=== PATIENT | female | born 1960 | race Caucasian/White ===

== ENCOUNTER 2022-04-15 11:25 | Outpatient (CLI) | payer BC, SELFPAY ==
--- NOTE | 2022-04-15 11:00 | DI.RAD_ITS ---
Exam(s) XR STANDING ALIGNMENT EXAM: XR STANDING ALIGNMENT CLINICAL HISTORY: eval painful R knee, malalignment. TECHNIQUE: 2D digital imaging was performed. Eight images were obtained. COMPARISON: CR XR KNEE 3 VIEW RIGHT from 06/23/2020 FINDINGS: BONES: The hips are well maintained. The patient has bilateral total knee replacements. The ankles are well maintained.There is no significant leg length discrepancy. SOFT TISSUE: Normal. IMPRESSION: Bilateral total knee replacements. DATA REPOSITORY: RADIATION DOSE DELIVERED:
--- NOTE | 2022-04-15 11:00 | DI.RAD_ITS ---
Exam(s) XR KNEE RT 2V AP,LAT EXAM: XR KNEE RT 2V AP,LAT CLINICAL HISTORY: eval R TKA pain. TECHNIQUE: 2D digital imaging was performed of the right knee. Two views obtained. AP and lateral views were obtained. COMPARISON: CR,DX XR KNEE 3V BILAT-M2 from 09/17/2018 CR XR KNEE 4 VIEW RIGHT from 08/06/2020 FINDINGS: BONES: No acute fracture is present. No bony destructive lesion is seen. There is an enthesophyte at the superior patella. JOINTS: The patient has a right total knee replacement. There is now of varus deformity of the knee. There is a question of malalignment of the femoral component of the prosthesis. The distal femur a nd the femoral component of the prosthesis have a change in alignment compared to the examination fro 2019. There is a small joint effusion. SOFT TISSUE: Atherosclerosis is present. IMPRESSION: There appears to be a change in the alignment of the femoral prosthesis relative to the distal femur. There is now mild varus deformity of the right knee. This may represent loosening of the prosthesi s. DATA REPOSITORY: RADIATION DOSE DELIVERED:
[2022-04-15 13:03] LABS: Clarity Cloudy; Nucleated Cells 787 uL (0)
[2022-04-15 13:11] LABS: Mononuclear Cells 76 %; Polynuclear Cells 24 %
== END 2022-04-15 11:26 | disposition home or self-care (01) ==
LOC: DIORS 11:25
PROVIDERS: PCP Internal Medicine; Referring Provider Internal Medicine; Visit Provider Student in an Organized Health Care Education/Training Program
DX: T84.84XA Pain due to internal orthopedic prosthetic devices, implants and grafts, initial encounter (principal); Z96.653 Presence of artificial knee joint, bilateral; M21.161 Varus deformity, not elsewhere classified, right knee
CPT/HCPCS: 73560; 77073; 87070; 87205; 89051

== ENCOUNTER 2022-04-15 16:24 | Outpatient (REF) | payer BC, SELFPAY ==
--- OUTSIDE RECORDS SUMMARY | 2022-04-15 16:26 | XMS_ITS | Encounter Summary ---
:1960 Author Organization [facility] Address [address] [place] [address] Care Team Providers Name Role Phone Unavailable Primary Care Provider Unavailable Encounter Details Date Type Department Care Team Description 03/28/2012 Results Only [facility] Danitza Mcdonough, Laboratory Services - [facility] [address] [facility] [address] [place] [address] [place], [place] [id number] [phone] Social History Tobacco Use Types Packs/Day Years Used Date Never Assessed Sex Assigned at Date Recorded Not on file documented as of this encounter Plan of Treatment Not on filedocumented as of this encounter Procedures Procedure Name Priority Date/Time Associated Diagnosis Comme nts PAP TEST- RESULT Routine 03/28/2012 0:00 EDT Resu lts for this ONLY procedure are i n the results section. documented in this encounter Results PAP TEST- RESULT ONLY (03/28/2012 0:00 EDT) Pathology Report: CYTOPATHOLOGY REPORT [facility] Reports generated via electronic interface contain rut ginal data; however they are lacking the format of the original re port. Caution should be taken when reading/interpreting unfo rmatted reports. Name: ? MELBA VASQUEZ ? Accession #: ? [id number] : ? 1960 (Age: 52) ??F ?Collect Date: ? 03/18 Location: ? [facility] ? Receive Date : ? 03/29/2012 Provider: ?DANITZA MCDONOUGH PULLER OUT Copy to: ? Specimen/Source: ? Pap Test, Source Not Provided, ThinPrep Imaging System with manual evaluation Last Menstrual Period: ? 08/28 ? SPECIMEN ADEQUACY ? Satisfactory for Evaluation - transformation zone component present GENERAL CATEGORIZATION ? Negative for Intraepithelial Lesion or Malignan cy ? Document reviewed and electronically signed by: ? MANAS Vaz(ASCP) ? Report Date: ??04/03/2012 07:14 End of Report Specimen Performing Organization Address City/State/ZIP Code Phon e Number [facility] [address] [place] [address] SERVICES [facility] [address] [place] [address] documented in this encounter Visit Diagnoses Not on filedocumented in this encounter
--- OUTSIDE RECORDS SUMMARY | 2022-04-15 16:26 | XMS_ITS | Encounter Summary ---
:1960 Author Organization [facility] [place] [address] Care Team Providers Name Role Phone Unavailable Primary Care Provider Unavailable Encounter Details Date Type Department Care Team Description 06/28/2019 Hospital Encounter Mobile [facility], Hypertens ion, Echocardiography Lina Yan MD unspecified type [address] [place] [id number] [phone] Social History Tobacco Use Types Packs/Day Years Used Date Never Assessed Sex Assigned at Date Recorded Not on file documented as of this encounter Plan of Treatment Not on filedocumented as of this encounter Procedures Procedure Name Priority Date/Time Associated Comments Diagnosis ECHOCARDIOGRAM COMPLETE Routine 06/28/2019 10:11 Hypertension, Results for this AM EDT unspecified type procedure a re in the results section. documented in this encounter Results ECHOCARDIOGRAM COMPLETE (06/28/2019 10:11 AM EDT) P athologist Signature EF 65 [facility] Specimen (Source) Anatomical Location Collection Method / Collectio n Time Received Time / Laterality Volume 06/28/2019 Narrative [facility] - 06/28/2019 10:46 AM ED T Procedure: ?Transthoracic Echocardiogram Patient: ?PEDRO Ramirez. . ?? (Age): 1960(59y) Med Rec#: ? [id number] ?Sex: ?F ? Site Loc: ? [facility] ??H t / Wt: ??160(cm)/104.3(k Pt. Loc: ?Echo Lab ?BSA: ?2.05 Study Date: ?? 06/28/2019 ?Pt. Type: Outpatient Tape: ? Referring: Referring: Lina Flanagan Referring: [facility] Echo Lab Referring: [facility] Reading: Rafi Miranda ??([id number]) Performing: UNKNOWN Label Printer: NOEMÍ Diagnosis: *Essential (primary) hypertension (I10) BP: ? 156/82 SUMMARY: 1. The left ventricular chamber size is normal. Left ventricular wall thickness is normal. There is normal arnaud bal left ventricular systolic function. Ejection fraction is estimated to be 65%. There are no left ventricular segmental wall motion abnorm alities. 2. Right ventricular chamber size and sy stolic function are within normal limits. Pulmonary artery hyperten racheal could not be assessed due to inadequate tricuspid regurgitation je t. 3. The left atrium is normal in size. Th e right atrium is normal in size. 4. There is no hemodynamically significa nt valve disease. 5. See remainder of report for additiona l findings. Findings ? : Study Quality: ? Adequate Left Ventricle: ? The left ventricul ar chamber size is normal. ?Left ventricular wall thickness is normal. ?There is no evidence of LVOT obstr uction. ?No ventricular septal defect is vi sualized. ?There is normal global left ventri cular systolic function. ??Ejection fraction is estimated to be 65%. ?There are no left ventricular segm ental wall motion abnormalities. ?The left ventricular diastolic bg ling pattern is consistent with impaired LV relaxation. ?Doppler assessment is consistent w ith normal left sided filling pressure. Left Atrium: ? The left atrium is no rmal in size. Right Ventricle: ? Right ventricular chamber size, wall thickness, and systolic function are within normal limi ts. ?Pulmonary artery hypertension coul d not be assessed due to inadequate tricuspid regurgitation jet. Right Atrium: ? The right atrium is normal in size. Aortic Valve: ? The aortic valve str ucture is normal. ?The aortic valve leaflets are mild ly thickened. ?Systolic excursion of the aortic v alve is normal. ?There is no evidence of aortic lars ve stenosis. ?There is no evidence of aortic reg urgitation. Mitral Valve: ? The mitral valve ghanshyam flets are mildly thickened. ?There is trace mitral regurgitatio n present. Tricuspid Valve: ? The tricuspid lars ve leaflets are morphologically normal. ?There is trace tricuspid regurgita tion present. Pulmonic Valve: ? The pulmonic valve appears normal in structure and function. Pericardium: ? The pericardium appea rs normal and there is no evidence of a pericardial effusion. Aorta: ? The aortic root is normal i n size. ?The ascending aorta is normal in s ize. Pulmonary Artery: ? The main pulmona ry artery appears normal. Venous: ? The inferior vena cava david ears normal in size. ?There is a greater than 50% respir atory change in the inferior vena cava dimension. Misc: ? There is no hemodynamically significant valve disease. ?See remainder of report for additi onal findings. ?Two-dimensional echo, spectral Dop pler and color Doppler performed. Chambers 2D ?Value ?Units (Range) ? IVSd (2D) ? 1.1 ?cm ? LVPWd (2D) ?1.1 ?cm ? IVS:LVPW ratio (2D) 1 ?ratio ? RWT (2D) ?0.5 ?ratio ? RWT PW (2D) ? 0.5 ?ratio ? LVIDd (2D) ?4.4 ?cm ? LVIDs (2D) ?2.9 ?cm ? LV FS (2D) ?34 ? % ? EF Teichholz (2D) ?? 63 ? % ? Ao root diameter (2D3.3 ?cm (2.1 - 3.6) ? Ascending Ao ?3 ?cm (2 - 3.5) ? Volumes/Mass ?Value ?Units (Range) ? LA Area 4 CH ?15 ? cm2 (<21) ? RA AREA 4CH ? 16 ? cm2 ? LV mass (2D) ?168.9 ?g ? Diastolic/Systolic Function ?Value ?Units (Range) ? MV E-wave Vmax ?0.7 ?m/sec ? MV deceleration upqy112 ?msec ? MV A-wave Vmax ?0.8 ?m/sec ? MV E:A ratio ?0.9 ?ratio ? LV septal e' Vmax ?? 0.1 ?m/sec ? LV lateral e' Vmax ??0.1 ?m/sec ? LV average e' Vmax ??0.1 ?m/sec ? LV E:e' septal ratio6.4 ?ratio ? LV E:e' lateral rati8.8 ?ratio ? LV average E:e' rati7 ?ratio ? Wall Motion: Segment Name ?Rest ? Base-Anteroseptal ?? Normal ? Base-Anterior ? Normal ? Base-Anterolateral ??Normal ? Base-Posterolateral Normal ? Base-Inferior ? Normal ? Base-Inferoseptal ?? Normal ? Mid-Anteroseptal ?Normal ? Mid-Anterior ?Normal ? Mid-Anterolateral ?? Normal ? Mid-Posterolateral ??Normal ? Mid-Inferior ?Normal ? Mid-Inferoseptal ?Normal ? Ipava-Septal ? Normal ? Ipava-Anterior ? Normal ? Ip[place]-Lateral ?Normal ? Ipava-Inferior ? Normal ? Ipava-Tip ?Normal ? This report has been electronically sign ed by: _ Rafi Miranda MD ? 06/28/2019 10:45 :56 Images reviewed and interpretation emilia redd [facility] Cardiac Ultrasound Laboratory Procedure Note Rafi Miranda MD - 06/28/2019Formattin g of this note might be different from the original. Procedure: Transthoracic Echocardiogram Patient: PEDRO Love (Age): 0 1960(59y) Med Rec#: [id number] Sex: F Site Loc: [facility] Ht / Wt: 160(cm)/104.3(k Pt. Loc: Echo Lab BSA: 2.05 Study Date: 06/28/2019 Pt. Type: Outpati ent Tape: Referring: [facility]PIT Referring: Lina Flanagan Referring: [facility] Echo Lab Referring: [facility] Reading: Rafi Miranda ([id number]) Performing: UNKNOWN Label Printer: NOEMÍ Diagnosis: *Essential (primary) hypertension (I10) BP: 156/82 SUMMARY: 1. The left ventricular chamber size is normal. Left ventricular wall thickness is normal. There is normal arnaud bal left ventricular systolic function. Ejection fraction is estimated to be 65%. There are no left ventricular segmental wall motion abnorm alities. 2. Right ventricular chamber size and sy stolic function are within normal limits. Pulmonary artery hyperten racheal could not be assessed due to inadequate tricuspid regurgitation je t. 3. The left atrium is normal in size. Th e right atrium is normal in size. 4. There is no hemodynamically significa nt valve disease. 5. See remainder of report for additiona l findings. Findings : Study Quality: Adequate Left Ventricle: The left ventricular evelin mber size is normal. Left ventricular wall thickness is norm al. There is no evidence of LVOT obstructio n. No ventricular septal defect is visuali zed. There is normal global left ventricular systolic function. Ejection fraction is estimated to be 65%. There are no left ventricular segmental wall motion abnormalities. The left ventricular diastolic filling pattern is consistent with impaired LV relaxation. Doppler assessment is consistent with n ormal left sided filling pressure. Left Atrium: The left atrium is normal i n size. Right Ventricle: Right ventricular chamb er size, wall thickness, and systolic function are within normal limi ts. Pulmonary artery hypertension could not be assessed due to inadequate tricuspid regurgitation jet. Right Atrium: The right atrium is normal in size. Aortic Valve: The aortic valve structure is normal. The aortic valve leaflets are mildly th ickened. Systolic excursion of the aortic valve is normal. There is no evidence of aortic valve st enosis. There is no evidence of aortic regurgit ation. Mitral Valve: The mitral valve leaflets are mildly thickened. There is trace mitral regurgitation pre sent. Tricuspid Valve: The tricuspid valve ghanshyam flets are morphologically normal. There is trace tricuspid regurgitation present. Pulmonic Valve: The pulmonic valve appea rs normal in structure and function. Pericardium: The pericardium appears nor mal and there is no evidence of a pericardial effusion. Aorta: The aortic root is normal in size . The ascending aorta is normal in size. Pulmonary Artery: The main pulmonary art ascencion appears normal. Venous: The inferior vena cava appears n ormal in size. There is a greater than 50% respiratory change in the inferior vena cava dimension. Misc: There is no hemodynamically signif icant valve disease. See remainder of report for additional findings. Two-dimensional echo, spectral Doppler and color Doppler performed. Chambers 2D Value Units (Range) IVSd (2D) 1.1 cm LVPWd (2D) 1.1 cm IVS:LVPW ratio (2D) 1 ratio RWT (2D) 0.5 ratio RWT PW (2D) 0.5 ratio LVIDd (2D) 4.4 cm LVIDs (2D) 2.9 cm LV FS (2D) 34 % EF Teichholz (2D) 63 % Ao root diameter (2D3.3 cm (2.1 - 3.6) Ascending Ao 3 cm (2 - 3.5) Volumes/Mass Value Units (Range) LA Area 4 CH 15 cm2 (<21) RA AREA 4CH 16 cm2 LV mass (2D) 168.9 g Diastolic/Systolic Function Value Units (Range) MV E-wave Vmax 0.7 m/sec MV deceleration dpty805 msec MV A-wave Vmax 0.8 m/sec MV E:A ratio 0.9 ratio LV septal e' Vmax 0.1 m/sec LV lateral e' Vmax 0.1 m/sec LV average e' Vmax 0.1 m/sec LV E:e' septal ratio6.4 ratio LV E:e' lateral rati8.8 ratio LV average E:e' rati7 ratio Wall Motion: Segment Name Rest Base-Anteroseptal Normal Base-Anterior Normal Base-Anterolateral Normal Base-Posterolateral Normal Base-Inferior Normal Base-Inferoseptal Normal Mid-Anteroseptal Normal Mid-Anterior Normal Mid-Anterolateral Normal Mid-Posterolateral Normal Mid-Inferior Normal Mid-Inferoseptal Normal Ipava-Septal Normal Ipava-Anterior Normal Ipava-Lateral Normal Ipava-Inferior Normal Ipava-Tip Normal This report has been electronically sign ed by: _ Rafi Miranda MD 06/28/2019 10:45:56 Images reviewed and interpretation emilia redd [facility] Cardiac Ultrasound Laboratory Lina Flanagan MD ECHO ORDERABLES Performing Organization Address City/State/ZIP Code Phon e Number [facility] documented in this encounter Visit Diagnoses Diagnosis Hypertension, unspecified type documented in this encounter
--- OUTSIDE RECORDS SUMMARY | 2022-04-15 16:26 | XMS_ITS | Encounter Summary ---
:1960 Author Organization [facility] Address [address] [place] [address] Care Team Providers Name Role Phone Md YOLANDA Hahn Primary Care Provider Unavailable Encounter Details Date Type Department Care Team Description 03/20/2017 Results Only [facility] Lina Flanagan MD [phone] [place], [place] [address] (Wo rk) Social History Tobacco Use Types Packs/Day Years Used Date Never Assessed Sex Assigned at Date Recorded Not on file documented as of this encounter Plan of Treatment Not on filedocumented as of this encounter Procedures Procedure Name Priority Date/Time Associated Diagnosis Comme nts PAP TEST- RESULT Routine 03/20/2017 0:00 EDT Resu lts for this ONLY procedure are i n the results section. documented in this encounter Results PAP TEST- RESULT ONLY (03/20/2017 0:00 EDT) Pathology Report: CYTOPATHOLOGY REPORT [facility] Reports generated via electronic interface contain rut ginal data; SERVICES however they are lacking the format of the original re port. Caution should be taken when reading/interpreting unfo rmatted reports. Name: ? MELBA VASQUEZ ? Accession #: ? [id number] ? : ? 1960 (Age: 57 ) ??F ?Collect Date: ? 2016 ? Location: ? [facility] ? Receive Date: ? Provider: LINA FLANAGAN MD Copy to: ? Final Report SPECIMEN ADEQUACY ? Satisfactory for Evaluation - transformation zone component present GENERAL CATEGORIZATION ? Negative for Intraepithelial Lesion or Malignan cy ?? Hormonal/Contraceptive status: None Other: Conversion Man Clinical/Treatment Hx - None Specimen/Source: ??Pap Test, Cervix, ThinPrep Imaging System with manual evaluation Document reviewed and electronically signed by: ? MANAS Gomez(ASCP) ? Report ??Date: 03/29/2017 16:11 HPV with Pap Test ? Date Ordered: ? 03/29/2017 ? Status: ?? Signed Out ?Date Complete: ? 03/30/2017 ? By: ??Sy stem Interface ? Date Reported: ? 03/30/2017 ? Interpretation RESULT: Negative for HPV. No E6 or E7 mRNA is detected from HPV types 16,18,31,3 3,35, 39,45,51,52,56,58,59,66, and 68 by bus girl media nik amplification. Comments Document reviewed and electronically signed by: ? System Interface ? Report date: 03/30/2017 By the signature above, the attending physician certif ies that he/she has personally conducted a gross and/or microscopic examin ation of the described specimens and rendered or confirmed the above diagnosi s. End of Report Specimen Performing Organization Address City/State/ZIP Code Phon e Number [facility] [address] [place] [address] SERVICES documented in this encounter Visit Diagnoses Not on filedocumented in this encounter Care Teams Special Services Supervisor Relationship Specialty Start Date End Date Md Hahn MD PCP - General 07/28/15 documented as of this encounter
== END 2022-04-15 16:25 | disposition home or self-care (01) ==
LOC: LBN 16:24
PROVIDERS: PCP Internal Medicine; Visit Provider Student in an Organized Health Care Education/Training Program

== ENCOUNTER 2022-06-06 03:19 | Outpatient (CLI) | payer BC, SELFPAY ==
[2022-06-06 08:16] LABS: HCT 39.5 % (36.0-46.0); HGB 13.4 g/dL (11.2-15.7); MCH 30.9 pg (27.0-33.0); MCHC 33.9 % (32.0-36.0); MCV 91 fL (80-95); MPV 9.9 fL (8.0-11.0); Platelet Count 210 10^3/uL (130-400); RBC 4.33 10^6/uL (3.93-5.22); RDW 14.1 % (11.7-14.6); RDW-SD 47.8 fL
[2022-06-06 09:09] LABS: Anion Gap 8.1 mmol/L (3-11); BUN 22 mg/dL (7-18); CO2 27.9 mmol/L (21.0-32.0); CREATININE 0.8 mg/dL (0.55-1.02); Calcium 9.3 mg/dL (8.5-10.1); Chloride 100 mmol/L (98-107); Estimated GFR 83.26 (mL/min/1.73m2); Glucose 118 mg/dL (74-106); Sodium 136 mmol/L (136-145)
== END 2022-06-06 03:20 | disposition home or self-care (01) ==
LOC: LBO 03:19
PROVIDERS: PCP Internal Medicine; Visit Provider Student in an Organized Health Care Education/Training Program
DX: T84.032A Mechanical loosening of internal right knee prosthetic joint, initial encounter (principal); T84.84XA Pain due to internal orthopedic prosthetic devices, implants and grafts, initial encounter; Z01.818 Encounter for other preprocedural examination; Z96.651 Presence of right artificial knee joint
CPT/HCPCS: 36415; 80048; 85027; 86850; 86900; 86901

== ENCOUNTER 2022-06-07 07:00 | Inpatient (IN) | payer BC, SELFPAY ==
[2022-06-07] VITALS (11 sets, daily range): BP systolic 93–143; BP diastolic 60–78; PULSE 63–79; RESP 14–22; TEMP 35.5–36.7; TEMPC 36.4; O2SAT 95–98; BMI 44.6
--- NOTE | 2022-06-07 | DI.RAD_ITS ---
Exam(s) XR KNEE RT 2V AP,LAT EXAM: XR KNEE RT 2V AP,LAT CLINICAL HISTORY: s/p revision TKA. TECHNIQUE: 2D digital imaging was performed. COMPARISON: CR XR KNEE RT 2V AP,LAT from 04/15/2022 FINDINGS: Two views-performed postop There has been revision of the femoral component. There is now a long stem femoral component in plac e and a single cerclage wire in the distal diaphysis of the femur. Appears satisfactory. No fractur e or loosening. Tibial component appears unchanged. There are at least 2 calcific densities noted posteriorly which are not the fabella. These are proba owen loose bodies. IMPRESSION: Post revision, as above.. DATA REPOSITORY: RADIATION DOSE DELIVERED:
[2022-06-07 12:30] LABS: Source Nasal/Nares
[2022-06-07] MEDS: Celecoxib 200 MG CAP 400 MG PO (13:03)
[2022-06-07] MEDS: Acetaminophen 500 MG TAB 1000 MG PO ×2 (13:03→19:57)
[2022-06-07] MEDS: Lactated Ringers 1,000 ML 80 ML IV (13:05)
--- NOTE | 2022-06-07 13:06 | W.ANESPRE ---
General Info Date of Service Date Performed: 06/07/22 Height: 5 ft 2 in Weight: 110.7 kg Body Mass Index (BMI): 44.6 Surgical Procedure: Operation Date: 06/07/22 14:25 Proposed Procedure Side Surgeon p Knee Total Revision Right Jose Luis Bean MD Meds Allergies and Home Medications Allergies Allergy/AdvReac Type Severity Reaction Status Date / Time No Known Allergies Allergy Verified 06/07/22 12:42 Home Medication Medication Instructions Recorded albuterol sulfate 90 mcg/actuation 2 puff inhalation Q4H PRN 03/08/22 aerosol inhaler (ProAir HFA) cholecalciferol (vitamin D3) 10 20 mcg PO DAILY 03/08/22 mcg (400 unit) tablet cod liver oil 2 cap PO DAILY 03/08/22 furosemide 40 mg tablet (Lasix) 40 mg PO DAILY 03/08/22 ibuprofen 200 mg tablet (Advil) 400 mg PO Q6H PRN 03/08/22 lisinopril 5 mg tablet 5 mg PO DAILY 03/08/22 omega-3 fatty acids 500 mg capsule 500 mg PO DAILY 03/08/22 gabapentin 100 mg capsule 100 mg PO QHS 04/15/22 calcium carbonate 500 mg calcium 1,000 mg PO DAILY 05/30/22 (1,250 mg) chewable tablet (Calcium 500) Current Visit Medications: Current Medications Generic Name Dose Route Start Last Admin Trade Name Freq PRN Reason Stop Dose Admin Acetaminophen 1,000 mg 06/07/22 06:00 06/07/22 13:03 Acetaminophen 500 Mg Tab PO 06/07/22 16:00 1,000 mg PREOP LOBITO Administration Acetaminophen 1,000 mg 06/07/22 08:30 Acetaminophen 500 Mg Tab PO TID LOBITO Albuterol Sulfate 2 puff 06/07/22 06:59 Albuterol Hfa 8 Gm 60 Puff Inh IH Q4H PRN Aspirin 81 mg 06/07/22 08:30 Aspirin E.C. 81 Mg Tabec PO BID [facility] Celecoxib 400 mg 06/07/22 06:00 06/07/22 13:03 Celecoxib 200 Mg Cap PO 06/07/22 16:00 200 mg PREOP LOBITO Administration Celecoxib 200 mg 06/07/22 08:30 Celecoxib 200 Mg Cap PO BID [facility] Cholecalciferol unit 06/08/22 08:30 Cholecalciferol (Vitamin D3) 400 Unit Tab PO DAILY [facility] Device 1 each 06/07/22 07:00 Inhaler, Assist Device DIRECTED [facility] Docusate Sodium 100 mg 06/07/22 07:02 Docusate Sodium 100 Mg Cap PO BID PRN PRN Constipation Furosemide 60 mg 06/08/22 08:30 Furosemide 40 Mg Tab PO DAILY [facility] Gabapentin 300 mg 06/07/22 22:00 Gabapentin 300 Mg Cap PO HS [facility] Hydromorphone HCl 0.5 mg 06/07/22 07:02 Hydromorphone 2 Mg/Ml Syr IVP Q2H PRN PRN Tranexamic Acid 1,000 mg/ 60 mls @ 360 mls/hr 06/07/22 06:00 Sodium Chloride IV 06/07/22 16:00 PREOP LOBITO Tranexamic Acid 1,000 mg/ 60 mls @ 360 mls/hr 06/07/22 06:00 Sodium Chloride IV 06/07/22 16:00 DIRECTED [facility] Cefazolin Sodium 3,000 mg/ 100 mls @ 200 mls/hr 06/07/22 06:00 Sodium Chloride IVPB 06/07/22 16:00 PREOP [facility] Ringer's Solution 1,000 mls @ 80 mls/hr 06/07/22 06:00 IV 07/06/22 23:59 INFUSION [facility] Cefazolin Sodium/Dextrose 1 gm in 50 mls @ 100 mls/hr 06/07/22 20:00 Ancef Duplex IVPB 06/08/22 12:29 Q8H [facility] IV Miscellaneous Supplies 1 each 06/07/22 06:00 Iv Access IV 07/06/22 23:59 DIRECTED [facility] Lisinopril 5 mg 06/08/22 08:30 Lisinopril 5 Mg Tab PO DAILY [facility] Non-Formulary Medication 1,000 mg 06/08/22 08:30 Calcium Carbonate [Calcium 500] PO DAILY [facility] Non-Formulary Medication 250 mg 06/08/22 08:30 Magnesium PO DAILY [facility] Ondansetron HCl 4 mg 06/07/22 07:02 Ondansetron 4 Mg/2 Ml Vial IVP Q6H PRN PRN Nausea Oxycodone HCl 0 mg 06/07/22 07:02 Oxycodone 5 Mg Tab PO Q3H PRN PRN Pain Pantoprazole Sodium 40 mg 06/07/22 07:30 Pantoprazole 40 Mg Tabcr PO DAILY@0730 LOBITO Sodium Chloride 0 ml 06/07/22 06:00 Normal Saline Flush 10 Ml Syr IV 07/06/22 23:59 PRN PRN Sodium Chloride 0 ml 06/07/22 06:00 Normal Saline 10 Ml Vial IJ 07/06/22 23:59 DIRECTED PRN Sterile Water 0 ml 06/07/22 06:00 Water,Injection,Sterile 10 Ml Vial IJ 07/06/22 23:59 DIRECTED PRN PFSH Active Problems Active Problems: Problem Status Onset Code Hyperlipidemia E78.5 Severe obesity E66.01 Asthma J45.909 Hypertensive disorder I10 Painful total knee replacement, right T84.84XA, Z96.651 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 states it just affected the (R) side pf her body Disorder of hyperalimentation Medical History Comments:: Pt. states residual clear mucous cough from COVID 05/07/22 Surgical History Surgical History History of 1990 History of total left knee replacement (TKR) 02/2020 History of total right knee replacement (TKR) 06/2020 Left leg swelling Reports had vein stent placed Pilonidal cyst Umbilical hernia 2011 Tobacco Smoking/Tobacco Use Status: Never Alcohol Alcohol Intake: never Substance Use Substance use: Never Substance use type: does not use Vital Signs and Lab Results Vital Signs Most Recent Vital Signs in EMR: Most Recent Vital Signs Temp Pulse Resp BP Pulse Ox 36.7 C 79 16 143/71 H 95 06/07/22 12:53 06/07/22 12:53 06/07/22 12:53 06/07/22 12:53 06/07/22 12:53 Lab Results Blood Type / Crossmatch: Patient ABO/Rh A Positive 06/06/22 Antibody Screen NEGATIVE 06/06/22 Complete Blood Count: White Blood Count 5.70 10^3/uL (4.4-10.8) 06/06/22 07:55 Red Blood Count 4.33 10^6/uL (3.93-5.22) 06/06/22 07:55 Hemoglobin 13.4 g/dL (11.2-15.7) 06/06/22 07:55 Hematocrit 39.5 % (36.0-46.0) 06/06/22 07:55 Platelet Count 210 10^3/uL (130-400) 06/06/22 07:55 Complete Metabolic Panel: Sodium Level 136 mmol/L (136-145) 06/06/22 07:55 Potassium Level 4.0 mmol/L (3.5-5.1) 06/06/22 07:55 Chloride Level 100 mmol/L (98-107) 06/06/22 07:55 Carbon Dioxide Level 27.9 mmol/L (21.0-32.0) 06/06/22 07:55 Blood Urea Nitrogen 22 mg/dL (7-18) H 06/06/22 07:55 Creatinine 0.8 mg/dL (0.55-1.02) 06/06/22 07:55 Calcium Level 9.3 mg/dL (8.5-10.1) 06/06/22 07:55 Glucose Level 118 mg/dL (74-106) H 06/06/22 07:55 Liver Function Panel: No Data to Display Coagulation Panel: No Data to Display Cardiac Panel: No Data to Display Arterial Blood Gas: No Data to Display Venous Blood Gas: No Data to Display Pancreas Panel: No Data to Display Thyroid Panel: No Data to Display Infectious Disease: Coronavirus (COVID-19)(PCR) Pending 06/07/22 12:22 Coronavirus 2019 Source Nasal/Nares 06/07/22 12:22 Blood Cultures: No Data to Display Toxicology Panel: No Data to Display Anesthesia Assessment and Plan Anesthesia History Personal History: No History of Anesthesia Complications Family History: No Family History of Anesthesia Complications Exercise Tolerance Exercise Tolerance: Metabolic Equivalents<4 (Cerebral palsy with right sided weakness melecio in arm) Pertinent Negatives Pertinent Negatives: No Symptoms of GERD, No Major Cardiovascular Symptoms or Complaints, No Major Pulmonary Symptoms or Complaints and No History of CVA/TIA Cardiac & Pulmonary Exam Cardiac Exam: Normal S1/S2 Heart Sounds Pulmonary Exam: Clear Bilateral Breath Sounds Implantable Cardiac Device Does patient have a Pacemaker or an ICD?: No Airway Exam Known Difficult Airway: No Mallampati Class: 2 Mouth Opening: Normal (> 3cm) Thyromental Distance: Greater than 3 cm Neck Range of Motion: Full ROM Neck Circumference: Thick Teeth Condition: Normal Dentition ASA Classification ASA Score: ASA 3 Emergency Case?: No NPO Status NPO Status: NPO Clears >2 hours, Solids >8 hours Anesthesia Plan Resuscitation Status: Full Code Anesthesia Technique: Spinal Anesthesia Airway Planned: Natural Airway Monitors Used: Standard Monitors Preoperative Comments:: GA back up
[2022-06-07] MEDS: ceFAZolin 3,000 MG in Normal Saline 100 ML 200 MG IVPB ×2 (13:49→16:50)
--- NOTE | 2022-06-07 14:32 | W.ANESNERVE ---
Nerve Block Single Injection Procedure Date and Time Date Performed: 06/07/22 Procedure Start: 13:21 Location Where Procedure Performed Procedure Location: Day Surgery Unit Reason Performed: Postoperative Analgesia Requesting Provider: Jose Luis Bean Timeout Performed Timeout Performed: Yes Monitoring Used ECG, Blood Pressure, SpO2 and See EMR for corresponding vital signs Sterility Sterility: Hand Hygiene, Surgical Cap, Surgical Mask, Sterile Gloves, Sterile Drape/Sheet and Chlorhexidine Sedation Given During Procedure Sedation Given (Indicate Dose Given): Versed IV Dose:: 2 mg Patient Mental Status Patient Mental Status: Awake Nerve Block 1st Nerve Block: Laterality: Right Block Type: Adductor Canal Needle / Catheter Used: 100mm SonoPlex II Local Anesthetic Bolus (Indicate Dose Given): Lidocaine used for local infiltration of skin, Injected in 3-5ml increments after negative blood aspiration and Bupivacaine 0.25% Dose:: 15 mg Additives (Indicate Dose Given): None Ultrasound: Sterile probe cover and gel used Ultrasound Image Saved?: Yes Nerve Stimulator: Not Used Paresthesia: None Procedure Tolerated: No Complications and Patient tolerated well Procedure Outcome: Successful Procedure Comment: Deep anatomy with difficult visualization. Performed By: Cleo Sahu
[2022-06-07 14:34] LABS: COVID-19 PCR Negative (Negative)
--- NOTE | 2022-06-07 17:48 | W.ANESPOSTOP ---
Postoperative Evaluation Date, Time and Location Date Performed: 06/07/22 Time Performed: 17:48 Patient Location: PACU Vital Signs Most Recent Imported Vital Signs: Most Recent Vital Signs Temp Pulse Resp BP Pulse Ox 36.5 C 78 18 119/71 96 06/07/22 13:20 06/07/22 13:20 06/07/22 13:20 06/07/22 13:20 06/07/22 13:20 Most Recent Manually Entered Vital Signs: Adult Blood Pressure: 93/78 Heart Rate: 63 Respirations: 14 Oxygen Saturation (%): 98 Temperature (C): 36.4 C Pain Score (0-10 Scale): 0 Pain Score Most Recent Pain Score: Most Recent Pain Score Pain Level 0 06/07/22 13:20 Assessment Mental Status: Awake (Alert & Oriented to Patient Baseline) Airway and Respiratory Function: Patent airway with normal (patient baseline) respiratory exam Cardiovascular Function: Hemodynamically Stable Hydration Status: Adequately Hydrated Nausea & Vomiting: No Nausea or Vomiting Pain: Pt. Denies Any Pain Peripheral Nerve Block: Other (pt instructed on pre op adductor canal block, currently denies pain )
[2022-06-07] MEDS: Celecoxib 200 MG CAP PO (19:57)
[2022-06-07] MEDS: Normal Saline Flush 10 ML SYR IV (19:58)
[2022-06-07] MEDS: Aspirin E.C. 81 MG TABEC PO (19:58)
--- NOTE | 2022-06-07 20:41 | DI.VRAD_ITS ---
PROCEDURE INFORMATION: Exam: XR Right Knee Exam date and time: 06/07/2022 20:01 Age: 62 years old Clinical indication: Condition or disease; Other: S/P revision tka; Prior surgery; Surgery date: Post-operative (0-2 days) TECHNIQUE: Imaging protocol: Radiologic exam of the Right knee. Views: 3 views. COMPARISON: CR XR KNEE RT 2V AP,LAT 04/15/2022 11:35 FINDINGS: Bones/joints: Revised right total knee arthroplasty in anatomic alignment with satisfactory appearance of the hardware. Soft tissues: Expected postoperative soft tissue changes. IMPRESSION: Revised right total knee arthroplasty in anatomic alignment with satisfactory appearance of the hardware. Dictated and Authenticated by: Zo Abdi MD. Ordering:LARRY Amaya MD
--- NOTE | 2022-06-07 20:44 | W.PM.OP ---
Date of service: 06/07/22 Time of Service: 17:10 Operative Note Operative Note DATE OF PROCEDURE: 06/07/22 PRE-OP DIAGNOSIS: Failure of Right Knee Prosthesis POST-OP DIAGNOSIS: same (Chronic fracture of distal femur with prosthetic loosening) PROCEDURE: Revision of Right Prosthetic Knee Femoral Component; Distal Femoral Fracture Fixation wtih Cable SURGEON: Jose Luis Bean GEAR GRINDING MACHINE OPERATOR: Jocelynn Trevizo ANESTHESIA TYPE: Spinal Refer to Anesthesia Record ESTIMATED BLOOD LOSS: 400 PATHOLOGY: none sent TOURNIQUET TIME: 0 COMPLICATIONS: None Patient was transported to: PACU Patient's condition: stable Implants: 1. Staci Small Trabecular Metal Femoral Cone 2. Staci Persona Revision 7+ Femoral Component with 135mm stem extension 3. Staci 18mm CPS Poly Indications: I have seen Juhi in clinic for symptoms of RIGHT knee pain and deformity following knee replacement surgery at another institution. Varus collapse of the femoral component was confirmed with radiographic findings. Aspiration of knee revealed no signs of infection. Juhi has exhausted nonoperative methods and was having significant limitations in daily function with clear failure of the femoral component. Therefore, I did offer revision surgery and I discussed some of this technical details. I explained the risks of the procedure to include, but not limited to, bleeding, infection, pain, stiffness, fracture, damage to nerves and vessels, damage to muscles and tendons, loosening, need for repeat procedure, blood clot and cardiopulmonary demise. Despite these risks, Juhi elected to proceed. Findings: The femoral component was collapsed into the femur with a varus angulation and subsidence of at least 12 mm. The femoral component was removed without significant difficulty but the bone cement interface was intact. With further debridement and aggressive synovectomy of the knee it was clear that there was a fracture extending from the box of the femoral component that partially healed although an anterior defect and a small crack was visible. The femoral component was then revised preserving the medial shell of bone given the widening of the distal femur and a cable was placed around the distal third aspect of the fracture to prevent any propagation. Procedure Description: Juhi was greeted in the preoperative holding area where the correct side was identified and marked. The consent was reviewed with the patient and signed. The history and physical was updated. All questions were answered. Preoperative mediacations were administered: Acetaminophen 1000mg, Celebrex 400mg, and Gabapentin 300mg. An adductor canal block was then administered by the anesthesia team in the PACU. Juhi was taken back to the operating room. A spinal anesthestic was then administered. The patient was placed into the supine position on the operating room table. A nonsterile tourniquet was placed high onto the leg but only used for cementing. Posts were placed for positioning during the procedure. All bony prominences were well padded. Prophylactic antibiotics in the form of cefazolin were administered. 1g of Tranxemic Acid was given intravenously within 30 minutes of incision. The right leg was then prepped with Chloraprep and draped in a standard fashion with impervious stockinette. A second prep with Chloraprep was performed prior to application of Iodine impregnated skin protection. A timeout to confirm correct identity, side and site, procedure, allergies, anesthesia, and medical concerns was performed. With the knee in some flexion, the previous incision was utilized and extended proximally and distally by about 1 cm in both directions. Full thickness skin flaps were raised once the extensor mechanism was encountered. These were raised medially and laterally. Any bleeding was controlled with electrocautery. Once the extensor mechanism was fully exposed, a medial parapatellar arthrotomy was performed in a flexed position utilizing previous sutures as a landmark for the arthrotomy. All bleeding from the arthrotomy and the geniculate arteries was coagulated. A medial subperiosteal peel was performed with electrocautery to the midcoronal plane. The fat pad was removed while keeping the patellar tendon protected, and elevating any adhesions from the deep portions of the patellar tendon and the proximal tibia. The polyethylene was removed. An aggressive synovectomy was then performed utilizing 2 Allis and 2 Lester clamps. This was performed both medially, superiorly, and laterally. Additionally, an aggressive synovectomy was performed over the distal femur to visualize the femoral implant. Using flexible osteotomes I worked around the periphery of the femur. Interestingly, the femur was collapsed into varus position leaving a large strut of the medial distal femur intact with subsidence into the central portion of the femur itself. The cement and bone interface appear to be intact. However, the femoral component was not stable. After working around the edges with the flexible osteotomes a bone tamp was utilized to remove the femoral component. The majority the cement actually stayed with the component itself. The bone underlying the medial aspect of the femoral component in the central aspect of the box was quite soft with a pseudomembrane present throughout. There is significant shortening. Synovectomy was performed aggressively around the end of the femur for better visualization. All soft tissue which was interposed between the bone and the implant was removed. All unhealthy or necrotic tissue was removed getting back to healthier appearing bone. Performing synovectomy anteriorly revealed a soft spot in the anterior aspect of the femur with what appeared to be a healing crack in the femur extending from the soft spot where the box was previously. I did not use a rongeur to expose a small portion of the lip of the tibial component. Using a bone tamp I then applied a few blows to the tibia in upper direction and there is no motion at the tibial component and no fluid extravasation, confirming the tibia was well fixed. Attention was then turned to the revision of the femoral component. Using a reamer I began to ream the intramedullary canal the femur. This was taken up to a size 14mm reamer. This was left in place and the 7 degree valgus guide was position for a freshening cut of 2 mm over the distal femur. This was primarily lateral. Once again, the medial side of the femur had a large shell of the medial distal femur but vacancy within its more central portions. However, the size 7 femur, corresponding to her previous size femur, was narrower than the width of the shell of bone and therefore I decided to keep a shell of bone work within it to have both a structural foundation against the implant and bone but also keep part of her original bone with soft tissue attachments. From this point there was a clear defect of at least 10 mm over the distal, medial aspect. I then prepared the distal femur for a trabecular metal cone. This was done both with a reamer and with the broach. The tendency was for this cone to move both anteriorly and lateral based on the sclerosis from where the implant had resided and likely from the previous fracture. The cone was prepped until was in appropriate position. After preparing the cone it was evident that the fracture had not healed and that there is no bridging bone or bony healing of the fracture but yet just soft tissue. The fracture line was evident but not displaceable and did not move with manipulation of the cone. The 4-in-1 cutting guide was then positioned and a spacer block was utilized with the knee 90 degrees of flexion to determine rotation of the femoral component. This was locked and pinned into position. A 5 mm posterior?medial augment was necessary and this cut was freshened. This cut was also challenging given that was trying to keep the medial shell of bone and therefore I did not extend this cut all the way through the medial edge of the femur but were within the confines. The anterior posterior chamfers were cut as well as a recut to the distal?anterior femur. With the 4-in-1 cutting guide removed I then continued to work on the posterior cut for the augment medially working within that shell of bone. The trial components were assembled on the back table and then inserted. The knee was trialed and a 18 mm polyethylene appropriately balanced the knee with a CPS implant. The notch cut was redone and confirmed to be appropriately cut. The trial components were removed. The final components, except for the polyethylene were opened on the back table. These were assembled on the back table while the periosteal and capsular tissues, especially posteriorly, around the knee were then systematically injected with a periarticular cocktail consisting of 246mg of Ropivacaine, 0.5mg of Epinephrine, 0.08mg of Clonidine, and 30mg of Ketorolac, diluted to 100cc.. The knee was thoroughly irrigated with a pulse lavage and dried. I then placed the small trabecular metal cone into the distal femur. This was impacted into appropriate position. After the completion of insertion it was evident that the fracture line in the distal femur may have gapped less than 1 mm but slightly more than it was before. I was assuming that this fracture line was chronic enough that did not need to be treated. However, given that the fracture line did shift ever so slightly, I placed a cable around the distal femur. Using a [employer] cable system cables placed from medial lateral hugging the bone around the entire distal femoral surface. There was then placed around the femur just above the metaphyseal flare and tightened down to 50 pounds of force. It was cramped into different directions. This cable was then cut. On the back table, with the implants opened, the cement was mixed. 2 batches of antibiotic laden high viscosity cement were prepared with vacuum assistance. After the cement was ready a small amount was placed on to the back side of the tibial component at the keel. Cement was placed over the backside of the femoral component and around the box and the base of the stem. Cement was manual pressurized and impregnated into the cut surface of the femur and some of the central voids. The femoral component was lined up and impacted. Excess cement was removed. It was ensured to be down against the cut surface. The trial polyethylene was then inserted and the leg was brought out into full extension for the duration of the cement curing process, approximately 15min. During this process attention was turned to the gutters of the knee and for all interfaces for any excess cement. While the cement was hardening, the knee was irrigated with Surgiphor chlorhexadine solution. This was allowed to sit in the knee for 3 minutes and then it was thoroughly irrigated with saline. After the cement had finally cured, approximately 15min, the knee was taken through range of motion. A size 18mm polyethylene component provided the best range of motion and stability with less than 2mm gapping with medial and lateral stress and full extension without significant hyperextension. The patella was tracking with a no-thumbs technique. The trial poly was removed and once again the knee was checked for any loose, excess, or errant cement. The poly component was then inserted and impacted into position after cleaning and drying the tibial tray. The capsule was then reapproximated with a No. 1 Vicryl at multiple locations. The capsule was finally closed with a No. 2 Stratafix, barbed suture. The tourniquet was then released and the arthrotomy appeared watertight without significant bleeding. Deep tissues were then reapproximated with 0 Vicryl and 2-0 Vicryl. The skin was closed with a 4-0 nylon suture. A shantal vacuum-assisted dressing was then applied due to her habitus and the nylon closure in the revision case. This was followed by a [id number] ZINA wrap. A CryoCuff was applied. Juhi was transferred to the hospital bed without difficulty an suffering no apparent complication. Juhi has a guarded prognosis. Physical therapy will start today and without restrictions, weight-bearing as tolerated but with the use of a walker at all times for the next 6 weeks. Aspirin 81mg BID will be used for DVT prophylaxis.
[2022-06-07] MEDS: ceFAZolin 1 GM/50 ML BAG IVPB (21:18)
[2022-06-07] MEDS: Gabapentin 300 MG CAP PO (21:18)
[2022-06-07] MEDS: Albuterol HFA 8 GM 60 PUFF INH IH (21:19)
[2022-06-08] MEDS: Lactated Ringers 1,000 ML 80 ML IV ×2 (00:09→13:01)
[2022-06-08 03:28] VITALS: BP 101/63; PULSE 80; RESP 16; TEMP 36.7; O2SAT 96
[2022-06-08] MEDS: ceFAZolin 1 GM/50 ML BAG IVPB ×2 (05:34→13:44)
[2022-06-08] MEDS: Aspirin E.C. 81 MG TABEC PO (07:17)
[2022-06-08] MEDS: Acetaminophen 500 MG TAB 1000 MG PO ×2 (07:17→13:45)
[2022-06-08] MEDS: Pantoprazole 40 MG TABCR PO (07:17)
[2022-06-08] MEDS: Celecoxib 200 MG CAP PO (07:18)
[2022-06-08] MEDS: Docusate Sodium 100 MG CAP PO (07:18)
[2022-06-08 07:36] LABS: HCT 33.2 % (36.0-46.0); HGB 10.7 g/dL (11.2-15.7); MCH 30.4 pg (27.0-33.0); MCHC 32.2 % (32.0-36.0); MCV 94 fL (80-95); MPV 10.6 fL (8.0-11.0); Platelet Count 194 10^3/uL (130-400); RBC 3.52 10^6/uL (3.93-5.22); RDW 14.1 % (11.7-14.6); RDW-SD 48.5 fL; WBC 11.62 10^3/uL (4.4-10.8)
[2022-06-08 07:47] LABS: Anion Gap 6.7 mmol/L (3-11); BUN 23 mg/dL (7-18); CO2 27.3 mmol/L (21.0-32.0); CREATININE 0.8 mg/dL (0.55-1.02); Calcium 8.8 mg/dL (8.5-10.1); Chloride 105 mmol/L (98-107); Estimated GFR 83.26 (mL/min/1.73m2); Glucose 137 mg/dL (74-106); Potassium 4.2 mmol/L (3.5-5.1); Sodium 139 mmol/L (136-145)
[2022-06-08] MEDS: Cholecalciferol (Vitamin D3) 400 UNIT TAB 800 UNIT PO (07:51)
[2022-06-08] MEDS: Magnesium Gluconate 500 MG TAB 250 MG PO (07:51)
[2022-06-08] MEDS: Calcium Carbonate *TUMS* 500 MG CHEW 1000 MG CH (07:52)
[2022-06-08] MEDS: Furosemide 40 MG TAB 60 MG PO (07:52)
[2022-06-08] MEDS: Lisinopril 5 MG TAB PO (07:52)
[2022-06-08] MEDS: Dexamethasone 4 MG TAB PO (07:52)
[2022-06-08 08:24] VITALS: BP 109/71; PULSE 72; RESP 16; TEMP 36.3; O2SAT 96
--- NOTE | 2022-06-08 09:57 | PDOC.CMIN ---
- If Service Date Differs Date of service: 06/08/22 Time of Service: 09:57 Care Management Initial Assess PAST MEDICAL HISTORY/PAST SURGICAL HISTORY:: Medical History (Updated 05/30/22 @ 08:32 by Claire Hartman). Alopecia. Cerebral palsy. Disorder of hyperalimentation. Surgical History (Updated 05/30/22 @ 08:31 by Claire Hartman). History of . 1990. History of total left knee replacement (TKR). 02/2020. History of total right knee replacement (TKR). 06/2020. Left leg swelling. Reports had vein stent placed. Pilonidal cyst. Umbilical hernia PREVIOUS FUNCTIONAL STATUS/SOCIAL/FAMILY SUPPORTS:: Juhi lives in a single family home in [place], [place] with her Aren. 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 She has one daughter who lives in [place] with her and 13 month old daughter. Juhi is independent at baseline and does not receive any services. CURRENT FUNCTIONAL STATUS:: Juhi was sitting up in a chair when CM met with her. She appeared to be in good spirits and engaged easily with CM. Juhi talked a lot about her career, noting that she retired at the beginning of the pandemic and was happy that she was able to do so. She identified the challenges that teachers faced with remote learning during the first year of the Covid pandemic and the impact it has had on the students as well as the educators. ADVANCE DIRECTIVES:: none on file Has patient been provided with info about the portal/API?: Yes Did the patient sign up for the portal?: Yes (previously) CODE STATUS:: Full Code INSURANCE COVERAGE / FINANCIAL ISSUES:: BS CURRENT HOME/COMMUNITY SERVICES/EQUIPMENT:: Will attend outpatient PT after she has her first post-operative visit in early June. PRIMARY CARE PHYSICIAN:: Lina Flanagan POTENTIAL DISCHARGE NEEDS:: Follow up with PCP and plan of care PATIENT/FAMILY EDUCATION NEEDS:: Review of discharge instructions, limitations, activity, follow up plan, Ask Me Three TRANSPORTATION:: via private vehicle with family PLAN:: Juhi will likely be discharged home with no new services. She will follow up with her surgeon and plan of care and transport with family. CM will continue to support Juhi and her discharge needs.
--- NOTE | 2022-06-08 10:02 | IN_ITS ---
Date of service: 06/08/22 Time of Service: 10:02 PT Notes Visit Reasons: Revision TKA Physical Therapy Inpatient Initial Evaluation Date: 06/08/2022 Referring Doctor: RAMOB Cano PT Orders: PT CONSULT: S/P Ortho surgery Precautions: Fall. Standard. WBAT on right LE with AD. Patient Profile/Admitting Diagnosis: Juhi is a 62-year-old female with past medical history significant for cerebral palsy with residual weakness of right LE muscles who is S/P R knee TKA in June of 2020 at the [facility] [place] now diagnoses of mechanical loosening of internal right knee prosthetic joint and painful right total knee arthroplasty. She is status post revision of total knee arthroplasty on the right on postoperative day 1. PMHX: Medical History?(Updated 05/30/22 @ 08:32 by Claire Hartman) Alopecia Cerebral palsy Disorder of hyperalimentation Surgical History?(Updated 05/30/22 @ 08:31 by Claire Hartman) History of 1990 History of total left knee replacement (TKR) 02/2020 History of total right knee replacement (TKR) 06/2020 Left leg swelling Reports had vein stent placed Pilonidal cyst Umbilical hernia 2011 Social History/Home Situation: Lives with in a private home with 3 steps to enter with a rail on one side. Uses front-wheeled walker for all mobility ADL performance. Equipment Owned/DME: FWW, standard walker Subjective: Juhi states that she has preexisting weakness in R LE from having cerebral palsy early in life. Her R foot is smaller and her R lower extremity feels shorter compared to the L. She reports 3/10 pain in the R knee with weight bearing. Denies headache, neck, and lightheadedness throughout session. Objective: General Observation: Trunk minimally anteroflexed. High BMI. R foot smaller compared to L. Pelvic dip to R. JONELLE device in place in the R knee. Mental Status: Alert and oriented as to person, place, time, and purpose. Able to pay attention, focus, and respond appropriately. Pain: 3/10 in in R knee Vital Signs: WNL as closely monitored by nursing staff ROM: Right Lower Extremity: Hip flexion WFL. Hip abduction WFL. Knee flexion 20 degrees to 90 degrees. Knee extension -20 degrees. Ankle dorsiflexion to neutral only. Ankle plantarflexion WFL. Left Lower Extremity: Hip flexion WFL. Hip abduction WFL. Knee flexion WFL. Ankle dorsiflexion WFL. Ankle plantarflexion WFL. Strength: Right Lower Extremity: Hip flexors 4-/5. Hip abductors 4-/5. Knee flexors 3-/5. Knee extensors 3-/5. Ankle dorsiflexors 3-/5. Ankle plantarflexors 3-/5. Left Lower Extremity: Hip flexors 5/5. Hip abductors 5/5. Knee flexors 5/5. Knee extensors 5/5. Ankle dorsiflexors 5/5. Ankle plantarflexors 5/5. Bed Mobility/Transfers: Supine to sit stand by assist Sit to supine stand by assist Sit to stand stand by assist with bariatric FWW Stand to sit stand by assist with bariatric FWW Bed to reclining chair stand by assist with bariatric FWW Reclining chair to bed stand by assist with bariatric FWW Gait: Instructed patient with level surface ambulation of 200 feet requiring stand by assist. Pelvic dip to R. No heel strike as toes touch floor first. Trunk mlildy anteroflexed. Good quad activation. Step-to gait pattern. Feels more stable using the bariatric FWW. Balance: Static Sitting: Normal Dynamic Sitting: Normal Static Standing: Fair Dynamic Standing: Fair Special Tests: Mobility Limitations Standardized Measure [facility] 6 clicks Basic Mobility Inpatient Short Form: Raw Score: 21 CMS Score: 29% deficit Informed Consent/Education: Patient was instructed in purpose of PT consult and plan of care. Agreeable to proceed with established PT POC to achieve personal goals. Assessment: Patient requires the use of bariatric FWW to maximize independence and reduce fall risk of mobility ADL performance. Patient presents with clinical signs and symptoms consistent with current/admitting diagnoses that have resulted to mobility limitations, gait instability, generalized weakness, and overall ADL decline as demonstrated by the following impairment level findings: 1. Decreased strength to L knee major muscle groups 2. Impaired sitting/standing balance 3. Impaired activity tolerance 4. Limitation of joint range of motion in L knee Impairments are contributing to the following functional limitations: 1. Decline in bed mobility skills 2. Decline in transfer skills 3. Difficulty with ambulation without assistive device and physical assistance 4. Increased completion time for mobility ADL performance 5. Increased risk for falls 6. Difficulty with managing steps alone safely Patient is assessed as a 31090 moderate complexity based on the following: History: 62-year-old female with past medical history as indicated above Examination: Demonstrable impairment in strength, balance, and mobility level with underlying impairments and functional limitations as exhibited above as well as deficit score of 29% utilizing the [facility] Mobility Inpatient Short Form Presentation: Evolving Decision Makin moderate complexity Goals: N/A. PT evalaution and 1 treatment session only for HEP instruction and functional mobility training. Plan of Care/Treatment Plan: N/A. PT evalaution and 1 treatment session only for HEP instruction and functional mobility training. DISCHARGE RECOMMENDATIONS: [] Home with no services [] [] Home with services [specify] [X] Home with outpatient PT. Home when medically cleard by orthopedic surgeon. Will benefit from outpatient PT services to maximize functional mobility outcomes and facilitate independent community ambulation without an assistive device. Consider prescription for orthotic consult and fitting for heel insert/heel elevation to maximize muscle performance on the L LE. [] SNF for continued rehabilitation [] [] Custodial Care [] [] SNF versus LTC based on ability to participate and progress [] TREATMENT CODE/TIME: 51696 x 20 minutes, 01313 x 28 minutes beginning at 10:02 AM. Thank you for the opportunity to participate in the care of this patient. Kalina Snider PT, DPT, CLT [facility] [place], [place]
[2022-06-08 12:01] VITALS: BP 109/72; PULSE 90; RESP 16; TEMP 36.9; O2SAT 93
--- NOTE | 2022-06-08 15:04 | W.PM.DS.N ---
DS: Diagnosis Discharge Diagnosis (1) Painful total knee replacement, right: Status: Acute Discharge Plan Disposition Patient Disposition: HOME Condition: Stable Discharge Details Reason For Visit: Revision TKA Admit Date/Time: 06/07/22 17:16 Admit Provider: Jose Luis Bean Attending Provider: Jose Luis Bean Primary Care Provider: Lina Flanagan Hospital Course Hospital Course: Patient went the floor without complications. Tolerated transition from OR to floor well. Doing well postoperative day #1. Plan to discharge to home. Home Meds and New Rx's Prescriptions: New acetaminophen 500 mg capsule 1,000 mg PO Q8H PRN PRNQty: 90 0RF aspirin 81 mg tablet,delayed release (DR/EC) 81 mg PO BID Qty: 60 0RF celecoxib [Celebrex] 200 mg capsule 200 mg PO BID Qty: 60 0RF pantoprazole [Protonix] 40 mg tablet,delayed release (DR/EC) 40 mg PO DAILY Qty: 30 0RF gabapentin 300 mg capsule 300 mg PO QHS Qty: 14 0RF oxycodone 5 mg tablet 5 mg PO Q4H PRNQty: 18 0RF Continued calcium carbonate [Calcium 500] 500 mg calcium (1,250 mg) tablet,chewable 1,000 mg PO DAILY cod liver oil Capsule 2 cap PO DAILY furosemide [Lasix] 40 mg tablet 40 mg PO DAILY lisinopril 5 mg tablet 5 mg PO DAILY omega-3 fatty acids 500 mg capsule 500 mg PO DAILY albuterol sulfate [ProAir HFA] 90 mcg/actuation HFA aerosol inhaler 2 puff inhalation Q4H PRN cholecalciferol (vitamin D3) 10 mcg (400 unit) tablet 20 mcg PO DAILY gabapentin 100 mg capsule 100 mg PO QHS Discontinued ibuprofen [Advil] 200 mg tablet 400 mg PO Q6H PRN Discharge Instructions Additional Instructions: Total Knee Discharge Instructions Activity: The most important activity is to walk. You should try to take short walks a few times a day. It is important that when resting you work on keeping the knee straight. Avoid putting a pillow behind the knee as this will encourage flexion. Work on range of motion exercises as provided by Physical Therapy. - Start outpatient physical therapy within 2 weeks. - You should wear the TOMAS hose on both legs for 2 weeks. You may remove these at night. You may also use any compression sock in place of the TOMAS hose. - Utilize [employer] to review exercises, see videos on exercises and obtain basic information pertaining to your surgery and your recovery. Dressing: Remove the Jaya wrap by 2 days after your surgery and put on the TOMAS stocking given to you from the hospital. Keep the surgical dressing (underneath the JAYA wrap) in place for at least one week. After the first week it may be removed and replaced with light gauze and tape or nothing. The wound and dressing may get wet after 3 days but avoid soaking the dressing or otherwise it will need to be changed. Many people prefer covering the dressing with cling wrap (saran wrap) to minimize it from getting soaked. If it gets wet, just pat dry. If it starts to peel off then it will need to be changed. Medications: - You should take Tylenol and anti-inflammatory Celebrex as your primary pain control medications. If the Celebrex is too expensive or not covered, please call the office for another alternative (Advil/Ibuprofen or Naproxen/Aleve) - You have been prescribed a stronger pain medication Oxycodone for breakthrough pain, take as needed as prescribed. - You have also been prescribed a stomach acid reduction agent Pantoprozole to help reduce stomach acid and reflux. - You have been prescribed Gabapentin to take at night for restlessness and nerve pain. - You will be taking Aspirin 81mg twice a day for DVT prevention unless instructed otherwise. - If you have constipation you should take Colace or Miralax (both [id number]). It takes most people 3-4 days to have a bowel movement. Follow-up: 2 weeks If you have any acute concerns or questions, please do not hesitate to contact the office at [phone]. You may contact Dr. eBan with any questions after hours through the hospital at [phone] or on his cell phone at [phone]. Referrals: Jose Luis Bean MD [ [facility] STAFF PHYSICIAN] - Activity:: Activity as Tolerated Equipment/Supplies:: Walker Diet:: As Tolerated Discharge Orders Discharge Orders: Discharge Order (Routine); Ordered 06/08/22 Ordered By: Jocelynn Trevizo DS: Summary Time Spent with Patient providing and/or coordinating discharge services: Less than 30 minutes Status at Discharge Functional status at discharge: uses cane/walker Overall status at discharge: patient is progressing back to baseline Mental Status: mental status grossly normal Speech and Movement: speech and movement normal Mood: congruent mood Affect: normal affect Exam Psych Mental Status: mental status grossly normal Speech and Movement: speech and movement normal Mood: congruent mood Affect: normal affect DS: Data Vitals/I&O Vitals and I&O: Vital Signs Temperature 98.4 F 06/08/22 12:01 Temperature Source Tympanic 06/08/22 12:01 Pulse 90 06/08/22 12:01 Pulse Rhythm Regular 06/08/22 07:16 Respiratory Rate 16 06/08/22 12:01 Respiratory Effort Non-Labored 06/08/22 07:16 Respiratory Depth Normal 06/08/22 07:16 Respiratory Pattern Normal 06/08/22 07:16 Blood Pressure 109/72 06/08/22 12:01 Blood Pressure Mean 87 06/07/22 13:20 Blood Pressure Position Sitting 06/07/22 13:20 Pulse Oximetry 93 06/08/22 12:01 Respiratory End-tidal CO2 30 06/07/22 17:55 Oxygen Delivery Method Room Air 06/08/22 12:01 Oxygen Flow Rate 0 06/08/22 12:01 Pain Level 3 06/08/22 13:45 Comment 06/08/22 10:20 Intake & Output 06/07/22 06/08/22 06/08/22 23:59 11:59 23:59 Intake Total 1740 / 1740 1828.667 / 2936.000 1107.333 / 2936.000 Output Total 400 / 400 200 / 200 Balance 1340 / 1340 1628.667 / 2736.000 1107.333 / 2736.000 Weight 244 lb 0.827 oz Intake: IV 830 / 830 558.667 / 4712.551 6967.333 / 1666.000 Oral 910 / 910 1270 / 1270 Output: Urine 200 / 200 Emesis 0 / 0 Estimated Blood Loss 400 / 400 Other: Urine Color Yellow Yellow Yellow Urine Appearance Clear Clear Clear Urine Odor Normal None Normal Comment Void x1 in the toilet. Pt. accidentally knocked the measuring hat in to the toilet. Emesis Description None Voiding Methods Urinal Bedpan Toilet Data Completed and Pending Labs on day of discharge: Labs from last 24 hours 06/08/22 06/08/22 06:10 06:10 WBC 11.62 H RBC 3.52 L Hgb 10.7 L D Hct 33.2 L MCV 94 MCH 30.4 MCHC 32.2 RDW 14.1 Plt Count 194 MPV 10.6 Sodium 139 Potassium 4.2 Chloride 105 Carbon Dioxide 27.3 Anion Gap 6.7 BUN 23 H Creatinine 0.8 Est GFR (CKD-EPI 2020) 83.26 Glucose 137 H Calcium 8.8 PFSH All Active Problems Hyperlipidemia (Acute) Severe obesity (Acute) Asthma (Chronic) Hypertensive disorder (Chronic) Painful total knee replacement, right (Acute) Mechanical loosening of internal right knee prosthetic joint (Acute) Lower extremity edema (Acute) Primarily the left leg Vitiligo (Acute) Medical History Alopecia Cerebral palsy Pt. states it just affected the (R) side pf her body Disorder of hyperalimentation Surgical History History of 1990 History of total left knee replacement (TKR) 02/2020 History of total right knee replacement (TKR) 06/2020 Left leg swelling Reports had vein stent placed Pilonidal cyst Umbilical hernia 2011 Social History Smoking/Tobacco Use Status: Never Smoking risk assessment performed?: Yes Alcohol Intake: never Drug use: Never Substance use type: does not use Do you feel safe at home: Yes Do you feel safe in your relationship?: Yes
--- NOTE | 2022-06-08 17:16 | PDOC.CMDIS ---
- If Service Date Differs Date of service: 06/08/22 Time of Service: 17:16 LACE Index Scoring Tool - Questions: Length of Stay (in days): 1 Acuity (Admit via E.D.?): No E.D. Visits: 0 - Answers: Total Score: 1 Risk of Readmission: Low Risk Care Management Discharge Reason for Hospitalization: Medical History (Updated 05/30/22 @ 08:32 by Claire Hartman). Alopecia. Cerebral palsy. Disorder of hyperalimentation. Surgical History (Updated 05/30/22 @ 08:31 by Claire Hartman). History of . 1990. History of total left knee replacement (TKR). 02/2020. History of total right knee replacement (TKR). 06/2020. Left leg swelling. Reports had vein stent placed. Pilonidal cyst. Umbilical hernia Discharge Plan: Juhi will likely be discharged home with no new services. She will follow up with her surgeon and plan of care and transport with family. will continue to support Juhi and her discharge needs. Patient/Family Education Needs: Review of discharge instructions, limitations, activity, follow up plan, Ask Me Three
== END 2022-06-08 16:24 | disposition home or self-care (01) | DRG 464 ==
LOC: MS 06-08 15:09 → DSU 06-13 12:53 → MS 06-13 12:57
PROVIDERS: Nurse Anesthetist, Certified Registered; Admitting Provider Student in an Organized Health Care Education/Training Program; PCP Internal Medicine; Visit Provider Student in an Organized Health Care Education/Training Program
PROC: 0SPC0NZ Removal of Patellofemoral Synthetic Substitute from Right Knee Joint, Open Approach (ICD-10-PCS; CPT 27487; principal; 2022-06-07 14:15)
DX: T84.022A Instability of internal right knee prosthesis, initial encounter (principal); Z68.41 Body mass index [BMI] 40.0-44.9, adult; M96.661 Fracture of femur following insertion of orthopedic implant, joint prosthesis, or bone plate, right leg; T84.84XA Pain due to internal orthopedic prosthetic devices, implants and grafts, initial encounter; G80.9 Cerebral palsy, unspecified; E78.5 Hyperlipidemia, unspecified; J45.909 Unspecified asthma, uncomplicated; I10 Essential (primary) hypertension; E66.01 Morbid (severe) obesity due to excess calories
CPT/HCPCS: 27443; 27514; 36415; 76942; 80048; 85027; 87635; 97162; 97530; 73560; J0690; J1100; J2250; J2370; J2405; J3490; J8540

== ENCOUNTER 2022-06-20 10:14 | Outpatient (CLI) | payer BC, SELFPAY ==
--- NOTE | 2022-06-20 10:00 | DI.RAD_ITS ---
Exam(s) XR KNEE RT 1V XR STANDING ALIGNMENT EXAM: XR STANDING ALIGNMENT CLINICAL HISTORY: s/p revision. TECHNIQUE: 2D digital imaging was performed. Standing AP views were performed from the pelvis throu gh the ankles. COMPARISON: CR XR STANDING ALIGNMENT from 04/15/2022 CR,XR XR KNEE RT 2V AP,LAT from 06/07/2022 CR XR KNEE RT 1V from 06/20/2022 FINDINGS: BONES: No acute fracture is present. No bony destructive lesion is seen. Leg length discrepancy: JOINTS: Knees: Revised right knee prosthesis,, unchanged.. No change in appearance left knee prosthes is The ankle joints show degenerative changes, right greater than left.. The hip joints are unremarkable. SOFT TISSUE: Some anterior soft tissue swelling remains present at the right knee.. IMPRESSION: Degenerative changes of the ankles. Bilateral knee prostheses.. No significant leg length discrepancy. DATA REPOSITORY: RADIATION DOSE DELIVERED:
== END 2022-06-20 10:15 | disposition home or self-care (01) ==
LOC: DIORS 10:14
PROVIDERS: PCP Internal Medicine; Referring Provider Internal Medicine; Visit Provider Physician Assistant Surgical
DX: M19.072 Primary osteoarthritis, left ankle and foot (principal); M19.071 Primary osteoarthritis, right ankle and foot; Z96.653 Presence of artificial knee joint, bilateral; M79.89 Other specified soft tissue disorders; T84.84XD Pain due to internal orthopedic prosthetic devices, implants and grafts, subsequent encounter
CPT/HCPCS: 73560; 77073

== ENCOUNTER 2022-07-18 11:44 | Outpatient (CLI) | payer BC, SELFPAY ==
--- NOTE | 2022-07-18 10:15 | DI.RAD_ITS ---
Exam(s) XR KNEE RT 2V AP,LAT EXAM: XR KNEE RT 2V AP,LAT INDICATION: f/u R TKA revision. COMPARISON: CR XR KNEE RT 1V from 06/20/2022 TECHNIQUE: 2D digital imaging was performed. Two views. FINDINGS: There has been no change in the appearance of the right knee prosthesis with long stem femoral compon ent. There are no abnormal bony lucencies. No visible joint effusion. DATA REPOSITORY: RADIATION DOSE DELIVERED:
== END 2022-07-18 11:45 | disposition home or self-care (01) ==
LOC: DIORS 11:44
PROVIDERS: PCP Internal Medicine; Referring Provider Internal Medicine; Visit Provider Student in an Organized Health Care Education/Training Program
DX: Z96.651 Presence of right artificial knee joint (principal); Z47.1 Aftercare following joint replacement surgery
CPT/HCPCS: 73560

== ENCOUNTER 2022-08-22 10:07 | Outpatient (CLI) | payer BC, SELFPAY ==
--- NOTE | 2022-08-22 09:30 | DI.RAD_ITS ---
Exam(s) XR KNEE RT 2V AP,LAT EXAM: XR KNEE RT 2V AP,LAT INDICATION: new mid-distal femur pain. COMPARISON: CR,XR XR KNEE RT 2V AP,LAT from 06/07/2022 CR XR KNEE RT 1V from 06/20/2022 CR XR KNEE RT 2V AP,LAT from 07/18/2022 TECHNIQUE: 2D digital imaging was performed. Two views. FINDINGS: A total knee prosthesis is again noted. There is a long stem femoral component. There are no surrou nding lucencies. The tip of the stem of the tibial component is not included in the field of view. DATA REPOSITORY: RADIATION DOSE DELIVERED:
== END 2022-08-22 10:08 | disposition home or self-care (01) ==
LOC: DIORS 10:07
PROVIDERS: PCP Internal Medicine; Referring Provider Internal Medicine; Visit Provider Student in an Organized Health Care Education/Training Program
DX: M79.604 Pain in right leg; Z96.651 Presence of right artificial knee joint
CPT/HCPCS: 73560

== ENCOUNTER 2022-10-06 11:14 | Outpatient (CLI) | payer BC, SELFPAY ==
--- NOTE | 2022-10-06 09:00 | DI.RAD_ITS ---
Exam(s) XR KNEE RT 2V AP,LAT EXAM: XR KNEE RT 2V AP,LAT CLINICAL HISTORY: right knee pain. TECHNIQUE: 2D digital imaging was performed. COMPARISON: CR XR KNEE RT 2V AP,LAT from 07/18/2022 CR XR KNEE RT 2V AP,LAT from 08/22/2022 FINDINGS: Two views: There is continued stable position alignment of the components of the prosthesis. No new fractures i dentified. No obvious loosening. Long stem component of the femoral part of the prosthesis appears stable and there is an intact cerclage wire in the distal femur again noted. IMPRESSION: Satisfactory stable appearance. DATA REPOSITORY: RADIATION DOSE DELIVERED:
== END 2022-10-06 11:15 | disposition home or self-care (01) ==
LOC: DIORS 11:14
PROVIDERS: PCP Internal Medicine; Referring Provider Internal Medicine; Visit Provider Physician Assistant
DX: Z96.651 Presence of right artificial knee joint (principal); M25.561 Pain in right knee
CPT/HCPCS: 73560

== ENCOUNTER 2023-06-23 10:08 | Outpatient (CLI) | payer BC, SELFPAY ==
--- NOTE | 2023-06-23 10:00 | DI.RAD_ITS ---
Exam(s) XR KNEE RT 2V AP,LAT EXAM: XR KNEE RT 2V AP,LAT INDICATION: right TKA. COMPARISON: CR XR KNEE RT 2V AP,LAT from 10/06/2022 TECHNIQUE: 2D digital imaging was performed. Two views. FINDINGS: There has been no change in the alignment of the total knee prosthesis long stem femoral component. No abnormal surrounding bony lucencies. DATA REPOSITORY: RADIATION DOSE DELIVERED:
== END 2023-06-23 10:09 | disposition home or self-care (01) ==
LOC: DIORS 10:08
PROVIDERS: PCP Internal Medicine; Visit Provider Physician Assistant
DX: Z47.1 Aftercare following joint replacement surgery (principal); Z96.651 Presence of right artificial knee joint
CPT/HCPCS: 73560